=== PATIENT | female | born 1955 | race Caucasian/White ===

== ENCOUNTER 2018-11-24 12:31 | Day surgery (SDC) | payer MEDICARE ==
[2018-11-24] MEDS ORDERED: Depo-Medrol 40 MG/ML IM ONE (12:32)
[2018-11-24] MEDS ORDERED: LIDOCAINE HCL 2% 100 MG/5 ML IJ ONE (12:32)
[2018-11-24] MEDS ORDERED: Ketamine HCl 50 MG/ML IV ONE (12:32)
[2018-11-24] MEDS ORDERED: Xylocaine 1% Vial 30 ML PF IJ ONE (12:32)
[2018-11-24] MEDS ORDERED: DIPRIVAN 200 MG/20 ML IV ONE (12:32)
[2018-11-24] MEDS ORDERED: Lactated Ringers 1,000 ML IV ONE (14:38)
--- NOTE | 2018-11-25 08:35 | XRAY ---
Indication: L4-S1 MBB. Intraoperative fluoroscopy was provided for 12 seconds. 2 digital spot images submitted for interpretation demonstrates posterior needle tips projecting over the expected course of the left and right L4-S1 nerve roots. Correlate with intraoperative findings/report.
--- NOTE | 2018-11-25 08:38 | XRAY ---
12 seconds fluoroscopy time in surgery for bilateral L4-S1 MBB.
== END 2018-11-24 14:34 | disposition home or self-care (01) ==
LOC: SDC-PAIN 12:31
PROVIDERS: ATTEND Psychiatry & Neurology Pain Medicine
DX: M47.816 Spondylosis without myelopathy or radiculopathy, lumbar region (principal); I10 Essential (primary) hypertension; G47.30 Sleep apnea, unspecified; Z79.899 Other long term (current) drug therapy
CPT/HCPCS: 72100; 77002; J1030; J2001; J2704

== ENCOUNTER 2019-03-09 12:41 | Day surgery (SDC) | payer MEDICARE ==
[2019-03-09] MEDS ORDERED: Depo-Medrol 40 MG/ML IM ONE (12:42)
[2019-03-09] MEDS ORDERED: Marcaine 0.5% SDV 10 ML IJ ONE (12:42)
[2019-03-09] MEDS ORDERED: Xylocaine 1% Vial 30 ML PF IJ ONE (12:42)
[2019-03-09] MEDS ORDERED: Lactated Ringers 1,000 ML IV ONE (13:29)
[2019-03-09] MEDS ORDERED: DIPRIVAN 200 MG/20 ML IV ONE (14:14)
[2019-03-09] MEDS ORDERED: Ketamine HCl 50 MG/ML ONE (14:14)
--- NOTE | 2019-03-09 16:14 | XRAY ---
Indication: Bilateral L4-S1 MBB. Intraoperative fluoroscopy was provided for 7 seconds. Single digital spot image submitted for interpretation demonstrates posterior needle tips projecting over the expected course of the left and right L4-S1 nerve roots. Correlate with intraoperative findings/report.
--- NOTE | 2019-03-09 16:19 | XRAY ---
7 seconds of fluoroscopy was used in surgery for bilateral L4-L5 and L5-S1 MBB.
== END 2019-03-09 14:36 | disposition home or self-care (01) ==
LOC: SDC-PAIN 12:41
PROVIDERS: ATTEND Psychiatry & Neurology Pain Medicine
DX: M47.816 Spondylosis without myelopathy or radiculopathy, lumbar region (principal); I10 Essential (primary) hypertension; G47.30 Sleep apnea, unspecified
CPT/HCPCS: 64493; 64494; 72020; 77002; J1030; J2001; J2704

== ENCOUNTER 2019-04-13 10:03 | Day surgery (SDC) | payer MEDICARE ==
[2019-04-13] MEDS ORDERED: Marcaine 0.5% SDV 10 ML IJ ONE (10:04)
[2019-04-13] MEDS ORDERED: Depo-Medrol 40 MG/ML IM ONE (10:04)
[2019-04-13] MEDS ORDERED: Xylocaine 1% Vial 30 ML PF IJ ONE (10:04)
[2019-04-13] MEDS ORDERED: Lactated Ringers 1,000 ML IV ONE (11:17)
[2019-04-13] MEDS ORDERED: DIPRIVAN 200 MG/20 ML IV ONE ×2 (12:01→12:18)
[2019-04-13] MEDS ORDERED: Ketamine HCl 50 MG/ML ONE (12:01)
--- NOTE | 2019-04-13 15:27 | XRAY ---
39 seconds fluoroscopy time in surgery for right L4-S1 RFA.
--- NOTE | 2019-04-15 10:25 | XRAY ---
Indication: Right L4-S1 RFA. Intraoperative fluoroscopy was provided for 39 seconds. 2 digital spot images submitted for interpretation demonstrates posterior needle tips projecting over the expected course of the right L4-S1 nerve roots. Correlate with intraoperative findings/report.
== END 2019-04-13 12:53 | disposition home or self-care (01) ==
LOC: SDC-PAIN 10:03
PROVIDERS: ATTEND Psychiatry & Neurology Pain Medicine
DX: M47.816 Spondylosis without myelopathy or radiculopathy, lumbar region (principal); I10 Essential (primary) hypertension; F41.8 Other specified anxiety disorders; G47.30 Sleep apnea, unspecified; K21.9 Gastro-esophageal reflux disease without esophagitis; Z79.899 Other long term (current) drug therapy
CPT/HCPCS: 64635; 64636; 72100; 77002; J1030; J2001; J2704

== ENCOUNTER 2019-06-01 10:13 | Day surgery (SDC) | payer MEDICARE ==
[2019-06-01] MEDS ORDERED: Marcaine 0.5% SDV 10 ML IJ ONE (10:14)
[2019-06-01] MEDS ORDERED: Depo-Medrol 40 MG/ML IM ONE (10:14)
[2019-06-01] MEDS ORDERED: Ketamine HCl 50 MG/ML ONE (11:16)
[2019-06-01] MEDS ORDERED: DIPRIVAN 200 MG/20 ML IV ONE (11:16)
--- NOTE | 2019-06-01 12:16 | XRAY ---
Indication: Bilateral SI joint injection. Intraoperative fluoroscopy was provided for 15 seconds. 4 digital spot images submitted for interpretation demonstrates posterior needle tip projecting over the inferior left and right SI joints. Correlate with intraoperative findings/report.
--- NOTE | 2019-06-01 12:34 | XRAY ---
15 seconds fluoroscopy time in surgery for bilateral SI joint injections.
[2019-06-01] MEDS ORDERED: Lactated Ringers 1,000 ML IV ONE (14:00)
== END 2019-06-01 11:45 | disposition home or self-care (01) ==
LOC: SDC-PAIN 10:13
PROVIDERS: ATTEND Psychiatry & Neurology Pain Medicine
DX: M46.1 Sacroiliitis, not elsewhere classified (principal); I10 Essential (primary) hypertension; F41.8 Other specified anxiety disorders; G47.30 Sleep apnea, unspecified; Z79.899 Other long term (current) drug therapy
CPT/HCPCS: 27096; 72202; 77002; J1030; J2704; G0260

== ENCOUNTER 2019-08-03 12:35 | Day surgery (SDC) | payer MEDICARE ==
[2019-08-03] MEDS ORDERED: Marcaine 0.5% SDV 10 ML IJ ONE (12:36)
[2019-08-03] MEDS ORDERED: Depo-Medrol 40 MG/ML IM ONE (12:36)
[2019-08-03] MEDS ORDERED: Xylocaine 1% Vial 30 ML PF IJ ONE (12:36)
[2019-08-03] MEDS ORDERED: Ketamine HCl 50 MG/ML ONE (13:59)
[2019-08-03] MEDS ORDERED: DIPRIVAN 200 MG/20 ML IV ONE (13:59)
[2019-08-03] MEDS ORDERED: Lactated Ringers 1,000 ML IV ONE (16:18)
--- NOTE | 2019-08-03 17:02 | XRAY ---
Indication: Left L4-S1 RFA. Intraoperative fluoroscopy was provided for 22 seconds. 3 digital spot images submitted for interpretation demonstrate posterior needle tips projecting over the expected course of the left L4-S1 nerve roots. Correlate with intraoperative findings/report.
--- NOTE | 2019-08-03 17:13 | XRAY ---
22 seconds fluoroscopy time in surgery for left L4-S1 RFA.
== END 2019-08-03 14:37 | disposition home or self-care (01) ==
LOC: SDC-PAIN 12:35
PROVIDERS: ATTEND Psychiatry & Neurology Pain Medicine
DX: M47.816 Spondylosis without myelopathy or radiculopathy, lumbar region (principal); I10 Essential (primary) hypertension; G47.30 Sleep apnea, unspecified; F41.8 Other specified anxiety disorders; Z79.899 Other long term (current) drug therapy
CPT/HCPCS: 72100; 77002; J1030; J2001; J2704

== ENCOUNTER 2020-01-18 16:16 | Emergency (ER) | payer BC, MEDICAID ==
[2020-01-18 18:02] VITALS: O2SAT 99
[2020-01-18 18:07] LABS: Absolute Neutrophil Ct (ANC) 8.57 (1.4-6.9); BASOPHIL % 0.3 % (0.0-0.4); Basophil (Absolute #) 0.04 (0-0.4); Eosinophil % 2.2 % (0.00-5.0); Eosinophil (Absolute #) 0.33 (0-0.5); Hematocrit 38.4 % (35-47); Hemoglobin 12.4 gm/dl (12.0-16.0); Lymphocyte (Absolute #) 4.18 (1.0-4.6); Lymphocytes % 28.4 % (24.0-44.0); Mean Cell Volume 90.4 fl (78-100); Mean Corpuscular Hemoglobin 29.2 pg (26-32); Mean Corpuscular Hgb Concent. 32.3 g/dl (32-36); Mean Platelet Volume 11.4 fl (7.5-11.0); Monocytes % 10.9 % (0.0-12.0); Neutrophil % 58.2 % (36.0-66.0); Platelet Count 252 K/mm3 (150-450); Red Blood Count 4.25 M/mm3 (4.1-5.4); Red Cell Distribution Width 14.4 % (11.5-14.0); White Blood Count 14.7 K/mm3 (4.0-10.5)
[2020-01-18 18:25] LABS: ALBUMIN 4.6 g/dL (3.5-5.0); ANION GAP 18.7 MEQ/L (5-15); BILIRUBIN,TOTAL 0.5 mg/dL (0.2-1.3); Calcium 9.5 mg/dL (8.4-10.2); Creatinine 1 2.44 mg/dL (0.52-1.04); Potassium 5.2 mmol/L (3.5-5.1); Total Protein 7.9 g/dL (6.3-8.2)
--- NOTE | 2020-01-18 18:28 | ERPHSYRPT ---
- History of Present Illness Time Seen by Provider: 01/18/20 16:30 Historian: patient Exam Limitations: no limitations Patient Subjective Stated Complaint: Pt has been at the pain clinic all day trying to urinate a sample for them but has been unsuccessful, pt states that she has been having low right back pain for several days, last urination was last night Triage Nursing Assessment: Pt walked into the ER, hypertensive, hasn't urinated since last night, denies any pain at this time, no edema, pulses normal, skin w/ n/d, doesn't appear to be in any distress Physician History: Patient is a 64-year-old female presents to our ED from the pain clinic for evaluation of anuria. The pain clinic and needed a urine sample and patient was unable to produce. Patient has been trying for several hours. The last time patient urinated was yesterday evening. Patient feels like her abdomen is full. However unable to produce urine. She does not have a history of urinary retention. Abdominal pain is mild in intensity. Patient declined pain medication. No trauma. No fevers. No nausea or vomiting. Symptoms are mild in intensity. No specific worsening or improving factors. Patient voices no other complaints at this time. Timing/Duration: today Activities at Onset: none Quality: aching Abdominal Pain Onset Location: suprapubic Pain Radiation: no radiation Severity of Pain-Max: mild Severity of Pain-Current: mild Modifying Factors: Improves With: nothing Associated Symptoms: denies symptoms Allergies/Adverse Reactions: duloxetine [From Cymbalta] Adverse Reaction (Mild, Verified 01/18/20 16:36) Home Medications: Alendronate Sodium 70 mg [Fosamax 70 MG] 70 mg PO Q7D@0600 02/01/18 [ History] Ascorbic Acid 500 mg [Vitamin C 500 MG] 500 mg PO DAILY 02/01/18 [History] Aspirin EC 81 mg [Ecotrin 81 mg] 81 mg PO DAILY 02/01/18 [History] Atenolol 50 mg [Tenormin 50 mg] 50 mg PO DAILY 02/01/18 [History] Benazepril HCl [Lotensin] 40 mg PO DAILY 02/01/18 [History] Calcium Carb/Vitamin D3/Vit K1 [Viactiv Soft Chew Tablet] 1 each PO DAILY [History] Fluoxetine HCl [Prozac] 40 mg PO DAILY 02/01/18 [History] Garlic [Garlic Oil] 1,000 mg PO DAILY 02/01/18 [History] Levocetirizine Dihydrochloride [Xyzal] 5 mg PO QPM 02/01/18 [History] Multivitamin [Multivitamins] 1 each PO DAILY 02/01/18 [History] Omeprazole [Prilosec] 40 mg PO BID 02/01/18 [History] Quetiapine Fumarate [Seroquel Xr] 50 mg PO QHS 02/01/18 [History] Topiramate [Trokendi Xr] 25 mg PO DAILY 02/01/18 [History] Triamterene/Hydrochlorothiazid [Triamterene-Hctz 37.5-25 mg Cp] 1 each PO DAILY PRN PRN 02/01/18 [History] Vitamin B Complex [Super B [id number]] 1 each PO DAILY 02/01/18 [History] Vitamin E 400 Units [Vitamin E 400 UNIT SOFTGEL] 400 unit PO DAILY [History] calcitrioL [Calcitriol] 0.25 mcg PO DAILY 02/01/18 [History] Atorvastatin Calcium [Lipitor 20MG Tablet] 20 mg PO DAILY 01/18/20 [History] Levothyroxine Sodium [Synthroid] 125 mcg PO DAILY 01/18/20 [History] Oxycodone / APAP 10/325 mg [Oxycodone-Acetaminophen 10-325] 1 tab PO BID 01/18/20 [History] Travel Risk - International Travel Have you traveled outside of the country in past 3 weeks: No Have you or anyone close to you been diagnosed with or: No Do your reside in a community with a known COVID-19 case?: Yes If Yes where:: [place] - Coronavirus Screening Has patient experienced Coronavirus symptoms: No - Review of Systems Constitutional: No Symptoms, No Fever, No Chills Eyes: No Symptoms Ears, Nose, & Throat: No Symptoms Respiratory: No Symptoms, No Cough, No Dyspnea Cardiac: No Symptoms, No Chest Pain, No Edema, No Syncope Abdominal/Gastrointestinal: No Symptoms, No Abdominal Pain, No Nausea, No Vomiting, No Diarrhea Genitourinary Symptoms: No Symptoms, No Dysuria Musculoskeletal: No Symptoms, No Back Pain, No Neck Pain Skin: No Rash Neurological: No Dizziness, No Focal Weakness, No Sensory Changes Psychological: No Symptoms Endocrine: No Symptoms Hematologic/Lymphatic: No Symptoms Immunological/Allergic: No Symptoms All Other Systems: Reviewed and Negative - Past Medical History Pertinent Past Medical History: Yes Neurological History: Peripheral Neuropathy Cardiac History: High Cholesterol, Hypertension Endocrine Medical History: Hypothyroidism - Past Surgical History Past Surgical History: Yes Gastrointestinal: Appendectomy Female Surgical History: Section Other Surgical History: etopic and removed a tube. deviated septum. both wrists due to joints pulling apart - Social History Smoking Status: Never smoker Exposure to second hand smoke: No Drug Use: none Patient Lives Alone: Yes - Female History Hx Now: No - Nursing Vital Signs Nursing Vital Signs: Initial Vital Signs Temperature 98.0 F 01/18/20 16:25 Pulse Rate 56 L 01/18/20 16:25 Blood Pressure 162/61 01/18/20 16:25 O2 Sat by Pulse Oximetry 100 01/18/20 16:25 Pain Scale Pain Intensity 0 - Physical Exam General Appearance: no apparent distress, alert Eye Exam: PERRL/EOMI, eyes nml inspection Ears, Nose, Throat Exam: normal ENT inspection, pharynx normal, moist mucous membranes Neck Exam: normal inspection, non-tender, supple, full range of motion Respiratory Exam: normal breath sounds, lungs clear, No respiratory distress Cardiovascular Exam: regular rate/rhythm, normal heart sounds Gastrointestinal/Abdomen Exam: soft, No tenderness, No mass Back Exam: normal inspection, normal range of motion, No CVA tenderness, No vertebral tenderness Extremity Exam: normal inspection, normal range of motion, pelvis stable Neurologic Exam: alert, oriented x 3, cooperative, normal mood/affect, nml cerebellar function, sensation nml, No motor deficits Skin Exam: normal color, warm, dry SpO2 Interpretation: normal SpO2: 99 O2 Delivery: Room Air - Course Nursing assessment & vital signs reviewed: Yes - Radiology Exams Abdomen X-ray Interpretation: Other - CT Exams Abdomen/Pelvis CT Interpretation: Tele-radiologist Report (Hepatic steatosis, hepatomegaly, sigmoid diverticulosis) - Radiology Ultrasound Exam Renal Ultrasound: tele radiology report (Report as per semiconductor processing technician official report pending preliminary results show right kidney measuring 9.8 x 3.7 x 3.4 left kidney measuring 8.1 x 4.2 x 3.3 cm unable to visualize bladder. Right kidney difficult to visualize in its entirety.) Ordered Tests: Active Orders 24 hr Category Date Time Status Dewey [Catheter-[place] Dewey] STAT Care 01/18/20 18:01 Active IV Insertion STAT Care 01/18/20 17:59 Active ABDOMEN AND PELVIS W/0 CONTRAS [CT] Stat Exams 01/18/20 17:59 Taken KIDNEY [US] Stat Exams 01/18/20 17:07 Taken CBC W DIFF Stat Lab 01/18/20 18:00 Completed CMP Stat Lab 01/18/20 18:00 Completed UA W/RFX UR CULTURE Stat Lab 01/18/20 17:59 Uncollected Medication Summary Generic Name Dose Route Start Last Admin Trade Name Freq PRN Reason Stop Dose Admin Sodium Chloride 1,000 mls @ 999 mls/hr 01/18/20 19:29 01/18/20 19:32 Sodium Chloride 0.9% 1000 Ml IV 01/18/20 20:29 999 mls/hr .Q1H1M STA Administration Discontinued Medications Generic Name Dose Route Start Last Admin Trade Name Freq PRN Reason Stop Dose Admin Sodium Chloride Confirm 01/18/20 19:24 Sodium Chloride 0.9% 1000 Ml Administered 01/18/20 19:25 Dose 1,000 mls @ ud .ROUTE .STK-MED ONE Lab/Rad Data: Laboratory Result Diagrams 01/18/20 18:00 01/18/20 18:00 Laboratory Results 01/18/20 01/18/20 Range/Units 18:00 18:00 WBC 14.7 H (4.0-10.5) K/mm3 RBC 4.25 (4.1-5.4) M/mm3 Hgb 12.4 (12.0-16.0) gm/dl Hct 38.4 (35-47) % MCV 90.4 (78-100) fl MCH 29.2 (26-32) pg MCHC 32.3 (32-36) g/dl RDW 14.4 H (11.5-14.0) % Plt Count 252 (150-450) K/mm3 MPV 11.4 H (7.5-11.0) fl Gran % 58.2 (36.0-66.0) % Eos # (Auto) 0.33 (0-0.5) Absolute Lymphs (auto) 4.18 (1.0-4.6) Absolute Monos (auto) 1.60 H (0.0-1.3) Lymphocytes % 28.4 (24.0-44.0) % Monocytes % 10.9 (0.0-12.0) % Eosinophils % 2.2 (0.00-5.0) % Basophils % 0.3 (0.0-0.4) % Absolute Granulocytes 8.57 H (1.4-6.9) Basophils # 0.04 (0-0.4) Sodium 138 (137-145) mmol/L Potassium 5.2 H (3.5-5.1) mmol/L Chloride 101 (98-107) mmol/L Carbon Dioxide 24 (22-30) mmol/L Anion Gap 18.7 H (5-15) MEQ/L BUN 48 H (7-17) mg/dL Creatinine 2.44 H (0.52-1.04) mg/dL Estimated GFR 21.2 ML/MIN Glucose 90 (74-106) mg/dL Calcium 9.5 (8.4-10.2) mg/dL Total Bilirubin 0.50 (0.2-1.3) mg/dL AST 45 H (14-36) U/L ALT 47 H (0-35) U/L Alkaline Phosphatase 57 (38-126) U/L Serum Total Protein 7.9 (6.3-8.2) g/dL Albumin 4.6 (3.5-5.0) g/dL - Progress Progress: improved Progress Note: 01/18/20 19:[address] Love ER attending at [facility] who accepts transfer. Plan of care discussed with patient. She agrees to transfer to [facility] for further evaluation and treatment. Discussed with Dr.: Other (Case discussed with Dr. Love, ER attending physician at [facility] who accepts transfer.) Will see patient in: other Counseled pt/family regarding: lab results, diagnosis, rad results - Departure Departure Disposition: Transfer, Extended Care Facility Clinical Impression: Acute renal injury, Leukocytosis, Hyperkalemia, High anion gap metabolic acidosis, Sigmoid diverticulosis, Hepatic steatosis, Hepatomegaly, Anuria Condition: Stable Critical Care Time: No Referrals: BRADLEY CALDWELL MD [Primary Care Provider] -
[2020-01-18] MEDS ORDERED: Sodium Chloride 0.9% 1000 ML 1,000 ML ONE (19:24)
[2020-01-18] MEDS ORDERED: Sodium Chloride 0.9% 1000 ML 1,000 ML IV STA (19:29)
[2020-01-18 20:05] VITALS: BP 132/45; PULSE 64
--- NOTE | 2020-01-19 08:13 | XRAY ---
Indication: Urinary retention. Two-dimensional renal sonogram performed. Comparison: None Sonogram limited due to patient body habitus. Suboptimal visualization of the right kidney including color perfusion. Both kidneys normal in reniform shape with normal left renal color perfusion. Right kidney measures 9.8 x 3.7 x 3.4 cm and the left measures 8.1 x 4.2 x 3.3 cm. No focal solid/cystic renal mass or hydronephrosis. Cortical medullary differentiation preserved without cortical thinning. Urinary bladder is empty. Impression: Negative limited renal sonogram. Comment: Preliminary report was given.
--- NOTE | 2020-01-19 08:19 | XRAY ---
Indication: Flank pain. Unable to urinate. Multiple contiguous axial images obtained through the abdomen and pelvis without contrast as ordered. Comparison: None Lung bases demonstrates minimal bilateral dependent atelectasis. Left lung base demonstrates 2 tiny noncalcified nodules posteriorly, larger measuring 3-4 mm probably granulomatous in this demographic. No infiltrate or effusion. Heart is not enlarged. Stomach is distended with food/fluid. Noncontrasted stomach and bowel loops appear nonobstructed. Minimal sigmoid diverticulosis without diverticulitis. Previous reported appendectomy. Uterus atrophic or surgically absent. No free fluid/air. Liver is diffusely fatty and enlarged measuring 21.8 cm. Dewey balloon catheter empties the urinary bladder. Remaining liver, gallbladder, pancreas, spleen, adrenal glands, kidneys, ureters, and bladder are unremarkable for noncontrast exam. Mild scattered aortoiliac calcifications without AAA. Osseous structures intact with minimal/mild degenerative changes throughout the spine and mild/moderate degenerative changes of both hips. No ventral or inguinal hernias. Impression: 1. Sigmoid diverticulosis, diffuse fatty hepatomegaly, and Dewey catheter in situ. 2. Left lower lobe noncalcified micronodules probably granulomatous. 3. Remaining CT abdomen/pelvis without contrast exam is negative.
== END 2020-01-18 20:13 | disposition short-term general hospital (02) ==
LOC: ED 16:16
DX: N17.9 Acute kidney failure, unspecified (principal); Z79.899 Other long term (current) drug therapy; I10 Essential (primary) hypertension; E78.00 Pure hypercholesterolemia, unspecified; E03.9 Hypothyroidism, unspecified; G62.9 Polyneuropathy, unspecified
CPT/HCPCS: 36000; 36415; 51702; 74176; 76770; 80053; 85025; 96360; 99285

== ENCOUNTER 2021-06-19 13:56 | Day surgery (SDC) | payer MEDICARE ==
[2021-06-19] MEDS ORDERED: Depo-Medrol 40 MG/ML IM ONE (13:57)
[2021-06-19] MEDS ORDERED: BUPIVACAINE 0.5% VIAL IJ ONE (13:57)
[2021-06-19] MEDS ORDERED: Xylocaine 1% Vial 30 ML PF IJ ONE (13:57)
[2021-06-19] MEDS ORDERED: Lactated Ringers 1,000 ML IV ONE (15:24)
[2021-06-19] MEDS ORDERED: DIPRIVAN 200 MG/20 ML IV ONE (16:08)
--- NOTE | 2021-06-19 20:37 | XRAY ---
Indication: Right L4-S1 RFA. Intraoperative fluoroscopy provided for 35 seconds. 3 digital spot image submitted for interpretation demonstrates posterior needle tips projecting over the expected right L4-S1 nerve roots. Correlate with intraoperative findings/report.
--- NOTE | 2021-06-20 08:42 | XRAY ---
35 seconds fluoroscopy time in surgery for right L4-S1 RFA.
== END 2021-06-19 16:40 | disposition home or self-care (01) ==
LOC: SDC-PAIN 13:56
PROVIDERS: ATTEND Psychiatry & Neurology Pain Medicine
DX: M47.816 Spondylosis without myelopathy or radiculopathy, lumbar region (principal); Z79.899 Other long term (current) drug therapy
CPT/HCPCS: 64635; 64636; 72100; 77002; J1030; J2001; J2704

== ENCOUNTER 2021-07-03 10:15 | Day surgery (SDC) | payer MEDICARE ==
[2021-07-03] MEDS ORDERED: BUPIVACAINE 0.5% VIAL IJ ONE (10:16)
[2021-07-03] MEDS ORDERED: Depo-Medrol 40 MG/ML IM ONE (10:16)
[2021-07-03] MEDS ORDERED: Xylocaine 1% Vial 30 ML PF IJ ONE (10:16)
[2021-07-03] MEDS ORDERED: DIPRIVAN 200 MG/20 ML IV ONE (12:04)
--- NOTE | 2021-07-03 13:09 | XRAY ---
Indication: Left L4-S1 RFA. Intraoperative fluoroscopy provided for 31 seconds. 3 digital spot image submitted for interpretation demonstrates posterior needle tips projecting over the expected left L4-S1 nerve roots. Correlate with intraoperative findings/report.
--- NOTE | 2021-07-03 14:13 | XRAY ---
31 seconds of fluoroscopy was used in surgery for a left L4-S1 RFA.
[2021-07-03] MEDS ORDERED: Lactated Ringers 1,000 ML IV ONE (16:28)
== END 2021-07-03 12:45 | disposition home or self-care (01) ==
LOC: SDC-PAIN 10:15
PROVIDERS: ATTEND Psychiatry & Neurology Pain Medicine
DX: M47.817 Spondylosis without myelopathy or radiculopathy, lumbosacral region (principal); Z79.899 Other long term (current) drug therapy
CPT/HCPCS: 64635; 64636; 72100; 77002; J1030; J2001; J2704

== ENCOUNTER 2023-04-01 10:20 | Day surgery (SDC) | payer MEDICARE ==
[2023-04-01] MEDS ORDERED: BUPIVACAINE 0.5% VIAL IJ ONE (10:21)
[2023-04-01] MEDS ORDERED: Depo-Medrol 40 MG/ML IM ONE (10:21)
[2023-04-01] MEDS ORDERED: LIDOCAINE HCL 1% 50 MG/5 ML VL PF IJ ONE (10:21)
[2023-04-01] MEDS ORDERED: DIPRIVAN 200 MG/20 ML IV ONE (12:15)
--- NOTE | 2023-04-01 13:21 | XRAY ---
Indication: Left L4-S1 RFA. Intraoperative fluoroscopy provided for 23 seconds. 3 digital spot image submitted for interpretation demonstrates posterior needle tips projecting over the left L4-S1 nerve roots. Correlate with intraoperative findings/report.
--- NOTE | 2023-04-01 13:23 | XRAY ---
23 seconds of fluoroscopy was used in surgery for a left L4-S1 RFA.
[2023-04-01] MEDS ORDERED: Lactated Ringers 1,000 ML IV ONE (13:36)
== END 2023-04-01 12:48 | disposition home or self-care (01) ==
LOC: SDC-PAIN 10:20
PROVIDERS: ATTEND Psychiatry & Neurology Pain Medicine
DX: M47.816 Spondylosis without myelopathy or radiculopathy, lumbar region (principal); Z79.899 Other long term (current) drug therapy
CPT/HCPCS: 64635; 64636; 72100; 77002; J1030; J2001; J2704

== ENCOUNTER 2023-04-08 11:09 | Day surgery (SDC) | payer MEDICARE ==
[2023-04-08] MEDS ORDERED: LIDOCAINE HCL 1% 50 MG/5 ML VL PF IJ ONE (11:10)
[2023-04-08] MEDS ORDERED: BUPIVACAINE 0.5% VIAL IJ ONE (11:10)
[2023-04-08] MEDS ORDERED: Depo-Medrol 40 MG/ML IM ONE (11:10)
[2023-04-08] MEDS ORDERED: DIPRIVAN 200 MG/20 ML IV ONE (13:49)
[2023-04-08] MEDS ORDERED: Xylocaine-Mpf 2% 5 Ml Vial ONE (13:53)
--- NOTE | 2023-04-08 15:19 | XRAY ---
Indication: Right L4-S1 RFA. Intraoperative fluoroscopy provided for 24 seconds. 3 digital spot image submitted for interpretation demonstrates posterior needle tips projecting over the expected right L4-S1 nerve roots. Correlate with intraoperative findings/report.
--- NOTE | 2023-04-08 15:21 | XRAY ---
24 seconds of fluoroscopy was used in surgery for a right L4-S1 RFA.
[2023-04-08] MEDS ORDERED: Lactated Ringers 1,000 ML IV ONE (15:25)
== END 2023-04-08 14:22 | disposition home or self-care (01) ==
LOC: SDC-PAIN 11:09
PROVIDERS: ATTEND Psychiatry & Neurology Pain Medicine
DX: M47.816 Spondylosis without myelopathy or radiculopathy, lumbar region (principal); Z79.899 Other long term (current) drug therapy
CPT/HCPCS: 64635; 64636; 72100; 77002; J1030; J2001; J2704

== ENCOUNTER 2023-07-15 08:40 | Day surgery (SDC) | payer MEDICARE ==
[2023-07-15] MEDS ORDERED: Depo-Medrol 40 MG/ML IM ONE (08:41)
[2023-07-15] MEDS ORDERED: BUPIVACAINE 0.5% VIAL IJ ONE (08:41)
[2023-07-15] MEDS ORDERED: Xylocaine-Mpf 2% 5 Ml Vial ONE (10:06)
[2023-07-15] MEDS ORDERED: DIPRIVAN 200 MG/20 ML IV ONE (11:16)
[2023-07-15] MEDS ORDERED: Lactated Ringers 1,000 ML IV ONE (11:52)
--- NOTE | 2023-07-15 12:24 | XRAY ---
Indication: Left SI joint and left hip injection. Intraoperative fluoroscopy provided for 22 seconds. 3 digital spot image obtained prone submitted for interpretation demonstrates posterior needle tip projecting over the left SI joint. Additional needle tip lateral to the left femur neck with small amount of contrast injected for needle tip placement. Correlate with intraoperative findings/report.
--- NOTE | 2023-07-15 13:32 | XRAY ---
22 seconds of fluoroscopy was used in surgery for a left intra-articular hip and sacroiliac joint injection.
== END 2023-07-15 11:45 | disposition home or self-care (01) ==
LOC: SDC-PAIN 08:40
PROVIDERS: ATTEND Psychiatry & Neurology Pain Medicine
DX: M46.1 Sacroiliitis, not elsewhere classified (principal); M16.12 Unilateral primary osteoarthritis, left hip; Z79.899 Other long term (current) drug therapy
CPT/HCPCS: 01992; 20610; 27096; 36410; 73501; 77002; G0260; J1030; J2704; Q9966

== ENCOUNTER 2025-06-07 14:26 | Day surgery (SDC) | payer MEDICARE, OTHER ==
[2025-06-07] MEDS ORDERED: methylPREDNISolone acetate IM ONE (14:27)
[2025-06-07] MEDS ORDERED: LIDOCAINE HCL 2% 100 MG/5 ML IJ ONE (14:27)
[2025-06-07] MEDS ORDERED: propofoL IV ONE (16:44)
[2025-06-07] MEDS ORDERED: Lactated Ringers 1,000 ML IV ONE (17:55)
--- NOTE | 2025-06-07 19:06 | XRAY ---
Indication: Bilateral L4-S1 MBB. Intraoperative fluoroscopy provided for 9 seconds. Single digital spot image submitted for interpretation demonstrates posterior needle tips projecting over expected left and right L4-S1 nerve roots. Correlate with intraoperative findings/report.
--- NOTE | 2025-06-08 10:15 | XRAY ---
9 seconds of fluoroscopy used in surgery for a bilateral L4-S1 MBB.
== END 2025-06-07 17:15 | disposition home or self-care (01) ==
LOC: SDC-PAIN 14:26
PROVIDERS: ATTEND Psychiatry & Neurology Pain Medicine
DX: M47.817 Spondylosis without myelopathy or radiculopathy, lumbosacral region (principal)

== ENCOUNTER 2025-08-02 11:34 | Day surgery (SDC) | payer MEDICARE, OTHER ==
[2025-08-02] MEDS ORDERED: BUPIVACAINE 0.5% VIAL IJ ONE (11:35)
[2025-08-02] MEDS ORDERED: methylPREDNISolone acetate IM ONE (11:35)
[2025-08-02] MEDS ORDERED: propofoL IV ONE (14:22)
--- NOTE | 2025-08-02 15:10 | XRAY ---
Indication: Bilateral L4-S1 MBB. Intraoperative fluoroscopy provided for 16 seconds. Single digital spot image submitted for interpretation demonstrates posterior needle tips projecting over expected left and right L4-S1 nerve roots. Correlate with intraoperative findings/report.
--- NOTE | 2025-08-02 15:17 | XRAY ---
16 seconds of fluoroscopy was used in surgery for a bilateral L4-S1 MBB.
[2025-08-02] MEDS ORDERED: Lactated Ringers 1,000 ML IV ONE (15:28)
== END 2025-08-02 14:50 | disposition home or self-care (01) ==
LOC: SDC-PAIN 11:34
PROVIDERS: ATTEND Psychiatry & Neurology Pain Medicine
DX: M47.817 Spondylosis without myelopathy or radiculopathy, lumbosacral region (principal)